=== PATIENT | male | born 1980 | race Caucasian/White ===

== ENCOUNTER → 2017-05-21 | Outpatient (CLI) | payer OTHER ==
[~2017-05-21] MED LIST: PRILOSEC OTC20 MG PO; PROTONIX 40MG T40 MG PO; VALACYCLOVIR1 GM PO; VICODIN 5/500 T1 TAB PO
--- NOTE | 2017-05-21 11:13 | RADIOLOGY REPORT PS360 ---
KNEE-3 VIEWS-RT HISTORY: Knee pain following injury SPRAIN RT KNEE LIGAMENT ORDERING PHYSICIAN: Ronni Hassan MD PATIENT AGE: 36 years COMPARISON: None FINDINGS: No fracture or dislocation. No lytic or blastic change. Normal mineralization. No significant arthritic changes evident. There is increased density in the suprapatellar region consistent with knee joint effusion. IMPRESSION: 1. No acute fracture. 2. Suprapatellar effusion
== END ==
LOC: RAD 09:41
DX: S83.8X1A Sprain of other specified parts of right knee, initial encounter (principal)